=== PATIENT | female | born 1940 | race Hispanic/Latino ===

== ENCOUNTER 2023-01-17 19:18 | Inpatient (IN) | payer OTHER ==
[~2023-01-17] VITALS: Ht 152.4 cm; Wt 56.6 kg
[2023-01-17] MEDS ORDERED: ONDANSETRON 4MG INJ IVP ONE (21:00)
[2023-01-17] MEDS ORDERED: 0.9%NACL 1000ML 1,000 ML IV ONE (21:00)
[2023-01-17] MEDS ORDERED: MORPHINE 4 MG SYG IVP ONE (21:00)
[2023-01-17 22:17] LABS: BASOPHILS % (AUTO) 0.6 % (0.0-5.0); EOSINOPHILS % (AUTO) 1.5 % (0.0-8.0); HEMATOCRIT 39.1 % (36-48); LYMPHOCYTES % (AUTO) 28.7 % (21.0-51.0); MEAN CORPUSCULAR HEMOGLOBIN 29.8 pg (27.0-33.0); MEAN CORPUSCULAR HGB CONC 33.2 g/dL (32.0-36.0); MEAN CORPUSCULAR VOLUME 89.7 fL (79-99); MONOCYTES % (AUTO) 6.7 % (3.0-13.0); NEUTROPHILS % (AUTO) 62.3 % (40.0-77.0); PLATELET COUNT (AUTO) 178 K/uL (130-400); RED BLOOD CELL COUNT(AUTO) 4.36 MIL/uL (4.00-5.50); WHITE BLOOD COUNT (AUTO) 4.8 K/uL (4.8-10.8)
[2023-01-17 22:31] LABS: CREATININE 0.9 mg/dL (0.5-1.5); POTASSIUM 3.2 mmol/L (3.5-5.1)
[2023-01-17] MEDS ORDERED: IOHEXOL 350 MG/ML 100ML INFUS..BTL IV ONE (22:34)
[2023-01-17 22:40] LABS: ALBUMIN 3.5 g/dL (3.5-5.0); TOTAL PROTEIN, SERUM 7.5 g/dL (6.0-8.3)
[2023-01-17] MEDS ORDERED: POTASSIUM BICARB/CIT AC 25 MEQ TABLET.EFF PO ONE (23:00)
[2023-01-17] MEDS ORDERED: ZOSYN 3.375GM +NS 50ML IVPB SCH (23:30)
[2023-01-18] MEDS ORDERED: ONDANSETRON 4MG INJ IV PRN
[2023-01-18] MEDS ORDERED: ACETAMINOPHEN 325 MG TAB PO PRN ×2
[2023-01-18] MEDS: CEFEPIME HCL 2 GM VIAL IVPB SCH ×2 (00:20→12:24)
[2023-01-18] MEDS: LACTATED RINGERS 1000ML 1,000 ML IV SCH ×2 (00:22→12:30)
[2023-01-18] MEDS ORDERED: MAGNESIUM 2GM PREMIX 50ML 50 ML IV PRN (00:30)
[2023-01-18] MEDS ORDERED: LOSA100T59 PO (01:26)
[2023-01-18] MEDS: METRONIDAZOLE 500MG/100ML BAG 100 ML IVPB SCH ×3 (06:00→21:14)
[2023-01-18 07:49] LABS: HEMATOCRIT 34.2 % (36-48); MEAN CORPUSCULAR HEMOGLOBIN 29.8 pg (27.0-33.0); MEAN CORPUSCULAR HGB CONC 32.5 g/dL (32.0-36.0); MEAN CORPUSCULAR VOLUME 91.9 fL (79-99); RED BLOOD CELL COUNT(AUTO) 3.72 MIL/uL (4.00-5.50); RED CELL DISTRIBUTION WIDTH 13.1 % (11.0-15.5); WHITE BLOOD COUNT (AUTO) 3.8 K/uL (4.8-10.8)
[2023-01-18 08:10] LABS: INR 0.98 (0.85-1.15); PROTHROMBIN TIME 11.4 SEC (9.6-11.6)
[2023-01-18 08:11] LABS: PARTIAL THROMBOPLASTIN TIME 28.9 SEC (26.3-35.5)
[2023-01-18 08:17] LABS: APPEARANCE,URINE CLEAR (CLEAR); BILIRUBIN,URINE NEGATIVE (NEGATIVE); COLOR,URINE LIGHT-YELLOW (YELLOW); GLUCOSE, URINE (UA) 50 mg/dL (NEGATIVE); KETONES,URINE NEGATIVE (NEGATIVE); LEUKOCYTE ESTERASE ,URINE NEGATIVE Leu/uL (NEGATIVE); NITRATE,URINE NEGATIVE (NEGATIVE); OCCULT BLOOD,URINE NEGATIVE (NEGATIVE); PH,URINE 5.5 (5.0-8.0); PROTEIN,URINE NEGATIVE (NEGATIVE); UROBILINOGEN,URINE 0.2 mg/dL (0.2-1.0)
[2023-01-18 08:46] LABS: MUCUS,URINE RARE LPF (None Seen); WBC,URINE 0-1 /HPF (0-1)
[2023-01-18 09:00] LABS: ALBUMIN 2.7 g/dL (3.5-5.0); CREATININE 0.8 mg/dL (0.5-1.5); POTASSIUM 3.4 mmol/L (3.5-5.1)
[2023-01-18] MEDS: FAMOTIDINE 20MG VIAL IV SCH (09:29)
[2023-01-18 11:05] VITALS: BP 146/66; PULSE 62; RESP 17; O2SAT 98
[2023-01-18] MEDS: KETOROLAC 15MG/ML VIAL (15MG/ML) IV PRN (12:40)
[2023-01-18 16:00] VITALS: BP 127/68; PULSE 55; RESP 16
[2023-01-18 19:20] VITALS: O2SAT 97
[2023-01-18 20:00] VITALS: BP 128/68; PULSE 70; RESP 18
[2023-01-18] MEDS ORDERED: KETOROLAC 15MG/ML VIAL (15MG/ML) IM PRN (21:30)
[2023-01-19] VITALS (8 sets, daily range): BP systolic 101–142; BP diastolic 50–76; PULSE 56–65; RESP 16–18; O2SAT 98
[2023-01-19] MEDS: LACTATED RINGERS 1000ML 1,000 ML IV SCH ×2 (00:23→11:47)
[2023-01-19] MEDS: CEFEPIME HCL 2 GM VIAL IVPB SCH ×2 (00:23→11:44)
[2023-01-19] MEDS: METRONIDAZOLE 500MG/100ML BAG 100 ML IVPB SCH ×3 (05:19→19:52)
[2023-01-19] MEDS: FAMOTIDINE 20MG VIAL IV SCH (08:13)
[2023-01-19] MEDS: POTASSIUM CHLORIDE 20MEQ/100ML 100 ML IV PRN (08:13)
[2023-01-19 09:34] LABS: CREATININE 0.7 mg/dL (0.5-1.5); MAGNESIUM 1.8 mg/dL (1.80-2.40); POTASSIUM 3.6 mmol/L (3.5-5.1); TOTAL PROTEIN, SERUM 6.4 g/dL (6.0-8.3)
[2023-01-19] MEDS: KETOROLAC 15MG/ML VIAL (15MG/ML) IV PRN (14:03)
[2023-01-20] VITALS (7 sets, daily range): BP systolic 124–154; BP diastolic 60–81; PULSE 57–69; RESP 18; O2SAT 97–99
[2023-01-20] MEDS: CEFEPIME HCL 2 GM VIAL IVPB SCH ×2 (01:48→12:10)
[2023-01-20] MEDS: METRONIDAZOLE 500MG/100ML BAG 100 ML IVPB SCH ×3 (06:05→20:56)
[2023-01-20] MEDS: LACTATED RINGERS 1000ML 1,000 ML IV SCH ×2 (06:05→18:40)
[2023-01-20] MEDS: FAMOTIDINE 20MG VIAL IV SCH (08:51)
[2023-01-20] MEDS: POTASSIUM CHLORIDE 20MEQ/100ML 100 ML IV PRN (08:52)
[2023-01-20 09:15] LABS: BASOPHILS % (AUTO) 0.9 % (0.0-5.0); EOSINOPHILS % (AUTO) 3.5 % (0.0-8.0); HEMATOCRIT 34.9 % (36-48); LYMPHOCYTES % (AUTO) 21.7 % (21.0-51.0); MEAN CORPUSCULAR HEMOGLOBIN 30.4 pg (27.0-33.0); MEAN CORPUSCULAR HGB CONC 34.1 g/dL (32.0-36.0); MEAN CORPUSCULAR VOLUME 89.3 fL (79-99); MONOCYTES % (AUTO) 6.1 % (3.0-13.0); NEUTROPHILS % (AUTO) 67.5 % (40.0-77.0); PLATELET COUNT (AUTO) 113 K/uL (130-400); RED BLOOD CELL COUNT(AUTO) 3.91 MIL/uL (4.00-5.50); RED CELL DISTRIBUTION WIDTH 12.6 % (11.0-15.5); WHITE BLOOD COUNT (AUTO) 3.5 K/uL (4.8-10.8)
[2023-01-20 09:26] LABS: CREATININE 0.7 mg/dL (0.5-1.5); MAGNESIUM 2.2 mg/dL (1.80-2.40); POTASSIUM 3.4 mmol/L (3.5-5.1)
[2023-01-20] MEDS: KETOROLAC 15MG/ML VIAL (15MG/ML) IV PRN (21:05)
[2023-01-21] VITALS (9 sets, daily range): BP systolic 120–144; BP diastolic 64–76; PULSE 60–71; RESP 18–20; O2SAT 98–100
[2023-01-21] MEDS: CEFEPIME HCL 2 GM VIAL IVPB SCH ×3 (00:11→23:45)
[2023-01-21] MEDS: LACTATED RINGERS 1000ML 1,000 ML IV SCH ×3 (04:20→20:37)
[2023-01-21] MEDS: METRONIDAZOLE 500MG/100ML BAG 100 ML IVPB SCH ×3 (05:02→20:37)
[2023-01-21] MEDS: POTASSIUM CHLORIDE 20MEQ/100ML 100 ML IV PRN ×2 (06:42→11:23)
[2023-01-21] MEDS: KETOROLAC 15MG/ML VIAL (15MG/ML) IV PRN (08:34)
[2023-01-21] MEDS: FAMOTIDINE 20MG VIAL IV SCH (08:35)
[2023-01-21] MEDS ORDERED: IOHEXOL-350 75 ML VIAL IV ONE (16:59)
[2023-01-22 03:23] VITALS: BP 126/71; PULSE 64; RESP 20
[2023-01-22] MEDS: METRONIDAZOLE 500MG/100ML BAG 100 ML IVPB SCH (05:14)
[2023-01-22] MEDS ORDERED: KCL 20 MEQ ERTAB PO PRN (06:00)
[2023-01-22] MEDS: POTASSIUM CHLORIDE 10% ELIXIR 20 MEQ/15 ML UDCUP PO PRN ×2 (06:26→08:55)
[2023-01-22 07:50] VITALS: O2SAT 98
[2023-01-22 08:00] VITALS: BP 147/75; PULSE 64; RESP 18
[2023-01-22] MEDS: FAMOTIDINE 20MG VIAL IV SCH (08:54)
[2023-01-22] MEDS ORDERED: LEVO-70 PO (11:01)
[2023-01-22] MEDS ORDERED: LACT1TAB26 PO (11:01)
[2023-01-22] MEDS ORDERED: METR-172 PO (11:01)
[2023-01-22 12:00] VITALS: BP 156/76; PULSE 60; RESP 20
[2023-01-22] MEDS: CEFEPIME HCL 2 GM VIAL IVPB SCH (12:30)
== END 2023-01-22 17:30 | disposition home or self-care (01) | DRG 392 ==
LOC: EDH 19:18 → EDHIP 19:19 → 3DH 01-18 10:38
PROVIDERS: ADMIT Hospitalist; ATTEND Hospitalist
DX: K57.32 Diverticulitis of large intestine without perforation or abscess without bleeding (principal); E87.6 Hypokalemia; I10 Essential (primary) hypertension; K52.9 Noninfective gastroenteritis and colitis, unspecified; Z85.038 Personal history of other malignant neoplasm of large intestine; Z90.710 Acquired absence of both cervix and uterus
CPT/HCPCS: 36415; 74177; 80048; 80053; 81001; 83605; 83690; 83735; 84132; 84484; 85025; 85027; 85610; 85730; 87040; 93005; G0378; J0692; J1885; J2270; J2405; J3475; J3480; J3490; J7030; Q9967